=== PATIENT | female | born 1955 | race Two or more races ===

== ENCOUNTER 2016-11-17 18:50 | Emergency (ER) | payer MEDICAID ==
[~2016-11-17] VITALS: Ht 162.6 cm; Wt 59.0 kg
[2016-11-17] MEDS ORDERED: KETOROLAC 60MG/2ML VIAL IM ONE (20:00)
[2016-11-17 20:54] VITALS: BP 122/93
== END 2016-11-17 21:15 | disposition home or self-care (01) ==
LOC: ER 18:53
DX: F43.0 Acute stress reaction (principal); R07.81 Pleurodynia; M25.512 Pain in left shoulder; M79.602 Pain in left arm; M54.89 Other dorsalgia; Z02.89 Encounter for other administrative examinations; Y35.811A Legal intervention involving manhandling, law enforcement official injured, initial encounter; Y35.891A Legal intervention involving other specified means, law enforcement official injured, initial encounter; Y93.89 Activity, other specified; Y92.018 Other place in single-family (private) house as the place of occurrence of the external cause; R03.0 Elevated blood-pressure reading, without diagnosis of hypertension
CPT/HCPCS: 36415; 71010; 84484; 93005; 96372; 99285; J1885